=== PATIENT | female | born 1990 | race Caucasian/White ===

== ENCOUNTER 2021-03-12 23:05 | Emergency (ER) | payer OTHER ==
[~2021-03-12] VITALS: Ht 162.6 cm; Wt 52.2 kg
[2021-03-12 23:10] VITALS: BP 137/78
[2021-03-13] MEDS ORDERED: PROAIR HFA8.5 GM INH (00:13)
== END 2021-03-13 00:31 | disposition home or self-care (01) ==
LOC: M.ERS 23:05
DX: R06.00 Dyspnea, unspecified (principal); R06.02 Shortness of breath; Z20.822 Contact with and (suspected) exposure to COVID-19; Z88.2 Allergy status to sulfonamides; Z90.89 Acquired absence of other organs

== ENCOUNTER 2021-09-20 12:21 | Emergency (ER) | payer OTHER ==
[~2021-09-20] VITALS: Ht 165.1 cm; Wt 54.4 kg
[~2021-09-20 12:21] MED LIST: PROAIR HFA8.5 GM INH
[2021-09-20] MEDS ORDERED: CIPRODEX OTIC7.5 ML OTIC (12:57)
[2021-09-20] MEDS ORDERED: AMOX TR-K CLV1 EAC4 PO (12:57)
[2021-09-20 13:06] VITALS: BP 126/76
== END 2021-09-20 13:06 | disposition home or self-care (01) ==
LOC: M.ERS 12:21
DX: H60.91 Unspecified otitis externa, right ear (principal); H66.91 Otitis media, unspecified, right ear; F17.210 Nicotine dependence, cigarettes, uncomplicated; Z90.89 Acquired absence of other organs; Z88.2 Allergy status to sulfonamides